=== PATIENT | female | born 1980 | race Two or more races ===

== ENCOUNTER 2024-08-03 21:11 | Emergency (ER) | payer SELFPAY ==
[~2024-08-03] VITALS: Ht 162.6 cm; Wt 113.4 kg
[2024-08-03] MEDS ORDERED: norco PO (21:27)
[2024-08-04] MEDS ORDERED: ONDANSETRON ODT 4 MG TAB.RAPDIS ONE (00:09)
[2024-08-04] MEDS ORDERED: HYDROMORPHONE 1 MG/1 ML DISP.SYRIN ONE ×2 (00:09→02:20)
[2024-08-04] MEDS: HYDROMORPHONE 1 MG/1 ML DISP.SYRIN IM ONE (00:14)
[2024-08-04] MEDS: ONDANSETRON ODT 4 MG TAB.RAPDIS SL ONE (00:15)
[2024-08-04 00:19] LABS: BASOPHILS # (AUTO) 0.1 K/UL (0.0-0.2); BASOPHILS % (AUTO) 0.6 % (0.0-2.0); HEMATOCRIT 32.2 % (31.2-41.9); LYMPHOCYTES # (AUTO) 0.9 K/uL (0.8-4.8); MEAN CORPUSCULAR HEMOGLOBIN 29.7 uug (24.7-32.8); MEAN CORPUSCULAR HGB CONC 34 g/dL (32.3-35.6); MEAN CORPUSCULAR VOLUME 86.5 fL (75.5-95.3); MONOCYTES % (AUTO) 0.5 % (0.0-11.0); NEUTROPHILS # (AUTO) 8.6 K/uL (1.8-8.9); NEUTROPHILS % (AUTO) 89.9 % (38.5-71.5); PLATELET COUNT (AUTO) 448 K/uL (179-408); RED BLOOD CELL COUNT(AUTO) 3.72 MIL/uL (3.63-4.92); RED CELL DISTRIBUTION WIDTH 15.7 % (12.3-17.7); WHITE BLOOD COUNT (AUTO) 9.6 K/uL (3.8-11.8)
[2024-08-04 00:21] LABS: DIFFERENTIAL COMMENT 1
[2024-08-04 00:26] LABS: CALCIUM 9.2 mg/dL (8.5-10.1)
[2024-08-04 00:38] LABS: ALBUMIN 3.5 g/dL (3.4-5.0); BILIRUBIN,TOTAL 0.2 mg/dL (0.2-1.0)
[2024-08-04 00:40] LABS: *BILIRUBIN,URIN NEGATIVE (NEGATIVE); *BLOOD, URINE NEGATIVE (NEGATIVE); *CLARITY,URINE CLEAR (CLEAR); *COLOR,URINE YELLOW (YELLOW); *KETONES,URINE NEGATIVE (NEGATIVE); *PROTEIN,URINE NEGATIVE (NEGATIVE); *UROBILINOGEN,URINE 0.2 E.U./dl (NORMAL); LEUKOCYTE ESTERASE ,URINE NEGATIVE (NEGATIVE); NITRITE, URINE NEGATIVE (NEGATIVE); UGLUCOSE TRACE (NEGATIVE)
[2024-08-04 00:42] LABS: LACTIC ACID 3.7 mmol/L (0.4-2.0)
[2024-08-04 00:49] LABS: *URINE HCG, QUAL NEGATIVE (NEGATIVE)
[2024-08-04] MEDS ORDERED: PIPERACILLIN/TAZOBACTAM/D5W 50 ML IV ONE (01:53)
[2024-08-04] MEDS: PIPERACILLIN SODIUM/TAZOBACTAM 3.375 G in IV DEXTROSE 5% 50 ML IV ONE (01:59)
[2024-08-04] MEDS: IV NS 1000 ML 1,000 ML IV ONE ×4 (02:18→05:48)
[2024-08-04] MEDS ORDERED: ONDANSETRON 4 MG/2 ML VIAL ONE (02:20)
[2024-08-04] MEDS: HYDROMORPHONE 1 MG/1 ML DISP.SYRIN IV ONE (02:27)
[2024-08-04] MEDS: ONDANSETRON 4 MG/2 ML VIAL IV ONE (02:28)
[2024-08-04] MEDS ORDERED: methylPREDNISolone SOD SUCC 125 MG/2 ML VIAL ONE (03:59)
[2024-08-04] MEDS ORDERED: diphenhydrAMINE 50 MG/1 ML VIAL ONE (03:59)
[2024-08-04] MEDS: diphenhydrAMINE 50 MG/1 ML VIAL IV ONE (04:09)
[2024-08-04] MEDS: methylPREDNISolone SOD SUCC 125 MG/2 ML VIAL IV ONE (04:10)
[2024-08-04] MEDS ORDERED: CLIN-118 PO (05:45)
[2024-08-04 05:49] VITALS: BP 126/62; O2SAT 97
== END 2024-08-04 05:50 | disposition home or self-care (01) ==
LOC: ER 21:18
DX: L03.311 Cellulitis of abdominal wall (principal); Z88.6 Allergy status to analgesic agent; Z90.49 Acquired absence of other specified parts of digestive tract
CPT/HCPCS: 99285; 36415; 74176; 96365; 96375; 80053; 81003; 82248; 84703; 83690; 85025; 87040; 83605 ×2; 96372; J2919; J1171 ×2; J1200; J2405; J2543; J7040; A4606; A4663; Q0162